=== PATIENT | male | born 1985 | race Caucasian/White ===

== ENCOUNTER 2024-03-01 03:13 | Observation (INO) ==
[2024-03-01] MEDS ORDERED: IOPAMIDOL 100 ML BOTTLE IV ONE (03:14)
[2024-03-01] MEDS: 0.9 % SODIUM CHLORIDE 1,000 ML IV ONE (03:48)
[2024-03-01] MEDS: METOCLOPRAMIDE 10 MG/2 ML VIAL IV ONE (03:48)
[2024-03-01 04:09] LABS: Basophils # (Auto) 0.02 K/mcL (0.00-0.30); Basophils % (Auto) 0.1 % (0.0-2.0); Eosinophils # (Auto) 0 K/mcL (0.00-0.70); Eosinophils % (Auto) 0 % (0.0-7.0); Hematocrit 43.1 % (40.1-51.0); Hemoglobin 14.5 g/dL (13.7-17.5); Lymphocytes # (Auto) 1.06 K/mcL (1.50-4.80); Lymphocytes % (Auto) 7.5 % (15.5-49.0); Mean Corpuscular HGB Conc 33.6 g/dL (31.0-36.0); Mean Platelet Volume 10.9 fL (8.8-12.5); Monocytes # (Auto) 0.99 K/mcL (0.10-0.90); Neutrophils % (Auto) 85.1 % (38.0-78.0); Platelet Count 138 K/mcL (140-440); RBC 4.79 M/mcL (4.63-6.08); Red Cell Distribution Width 13.1 % (11.5-14.5); WBC 14.1 K/mcL (4.5-11.0)
[2024-03-01] MEDS: KETOROLAC 15 MG/ML VIAL IV ONE (04:10)
[2024-03-01] MEDS: ACETAMINOPHEN 1,000 MG/100 ML BAG IV ONE (05:04)
[2024-03-01] MEDS: ONDANSETRON 4 MG/2 ML VIAL IV ONE (05:04)
[2024-03-01] MEDS: morphine 4 MG/ML VIAL IV ONE (05:33)
[2024-03-01] MEDS: DOXYCYCLINE 100 MG in DEXTROSE 5% IN WATER 100 ML IV ONE (06:11)
[2024-03-01 06:13] LABS: proBNP 78.1 pg/mL (<125.0)
[2024-03-01] MEDS: cefTRIAXone 1 GM VIAL IV ONE (06:15)
[2024-03-01] MEDS: DEXTROSE 5% IN WATER 100 ML IV ONE (06:47)
[2024-03-01] MEDS ORDERED: ACETAMINOPHEN 650 MG/65 ML BAG IV PRN (09:23)
[2024-03-01] MEDS ORDERED: IPRATROPIUM/ALBUTEROL 3 ML AMPUL.NEB NEB PRN (09:23)
[2024-03-01] MEDS ORDERED: guaiFENesin/DEXTROMETHORPHAN 5ML UD CUP PO PRN (09:23)
[2024-03-01] MEDS: ACETAMINOPHEN 325 MG TABLET PO PRN (09:49)
[2024-03-01] MEDS: 0.9 % SODIUM CHLORIDE 1,000 ML IV SCH ×3 (09:50→22:56)
[2024-03-01] MEDS: ENOXAPARIN 40 MG/0.4 ML SYRINGE SQ SCH (09:50)
[2024-03-01] MEDS: DOCUSATE SODIUM 100 MG CAPSULE PO SCH (09:50)
[2024-03-01] MEDS: ONDANSETRON 4 MG/2 ML VIAL IV PRN (09:51)
[2024-03-01] MEDS: morphine 4 MG/ML VIAL IV PRN (10:06)
[2024-03-01] MEDS: KETOROLAC 30 MG/ML VIAL IV PRN (12:23)
[2024-03-01] MEDS: 0.9 % SODIUM CHLORIDE 10 ML SYRINGE IV SCH (14:21)
[2024-03-01] MEDS: SENNOSIDES 1 TABLET PO SCH (19:53)
[2024-03-01] MEDS: DOXYCYCLINE 100 MG in DEXTROSE 5% IN WATER 100 ML IV SCH (20:00)
[2024-03-01] MEDS ORDERED: traZODone HCL 50 MG TABLET PO PRN (21:00)
[2024-03-02 06:35] LABS: Basophils # (Auto) 0.02 K/mcL (0.00-0.30); Basophils % (Auto) 0.2 % (0.0-2.0); Eosinophils # (Auto) 0.08 K/mcL (0.00-0.70); Eosinophils % (Auto) 0.6 % (0.0-7.0); Hematocrit 38.5 % (40.1-51.0); Hemoglobin 12.9 g/dL (13.7-17.5); Lymphocytes # (Auto) 1.53 K/mcL (1.50-4.80); Lymphocytes % (Auto) 12.2 % (15.5-49.0); Mean Cell Volume 90.6 fL (80.0-100.0); Mean Corpuscular HGB Conc 33.5 g/dL (31.0-36.0); Mean Platelet Volume 11.4 fL (8.8-12.5); Monocytes # (Auto) 0.73 K/mcL (0.10-0.90); Monocytes % (Auto) 5.8 % (1.0-12.0); Neutrophils % (Auto) 80.8 % (38.0-78.0); Platelet Count 128 K/mcL (140-440); RBC 4.25 M/mcL (4.63-6.08); Red Cell Distribution Width 13.4 % (11.5-14.5); WBC 12.6 K/mcL (4.5-11.0)
[2024-03-02 06:56] LABS: ALT/SGPT 13 U/L (<40); AST/SGOT 14 U/L (<40); Albumin 3.3 gm/dL (3.2-5.2); Albumin/Globulin Ratio 1.3 (1.0-2.3); Alkaline Phosphatase 55 U/L (39-117); Bilirubin,Direct 0.3 mg/dL (<0.3); Bilirubin,Total 0.6 mg/dL (0.1-1.0); Blood Urea Nitrogen 17 mg/dL (6-20); Calcium 8.4 mg/dL (8.6-10.4); Carbon Dioxide 23 mmol/L (22-30); Chloride 106 mmol/L (96-108); Globulin 2.6 gm/dL (2.2-3.7); Glomerular Filtration Rate 83; Glucose 99 mg/dL (70-105); Lactate Dehydrogenase 123 U/L (135-225); Phosphorous 1.6 mg/dL (2.5-4.5); Potassium 3.7 mmol/L (3.3-5.1); Sodium 139 mmol/L (133-145); Triglycerides 72 mg/dL (<150); Uric Acid 3.7 mg/dL (2.5-8.0)
[2024-03-02] MEDS: NEUTRA PHOS 1 PACKET PO SCH (09:12)
[2024-03-02] MEDS: PHOSPHORUS 250 MG TABLET PO SCH (09:13)
[2024-03-02] MEDS: cefTRIAXone 1 GM VIAL IV SCH (09:13)
== END 2024-03-02 10:44 | disposition home or self-care (01) ==
LOC: ED 03:13 → MEDSUR 08:45 → INTOOBSV 08:45
PROVIDERS: ADMIT Internal Medicine; ATTEND Internal Medicine